=== PATIENT | male | born 1980 | race Hispanic/Latino ===

== ENCOUNTER 2024-07-03 02:15 | Emergency (ER) | payer OTHER ==
[~2024-07-03] VITALS: Ht 172.7 cm; Wt 86.0 kg
[2024-07-03] MEDS ORDERED: LIDOCAINE 2% W/ EPINEPHRINE 30 ML MDV STI ONE (02:25)
[2024-07-03 02:30] VITALS: BP 116/70
[2024-07-03] MEDS ORDERED: Diph, Acellular Pertussis, Tet 0.5 ML/VIAL (Tdap) SDV IM ONE (02:50)
[2024-07-03] MEDS ORDERED: [UNRECOGNIZED DRUG - OTHER] IJ ONE (02:55)
[2024-07-03 02:57] VITALS: BP 116/70
== END 2024-07-03 03:17 | disposition home or self-care (01) | DRG 605 ==
LOC: ED 02:15
PROC: 0HQEXZZ Repair Left Lower Arm Skin, External Approach (ICD-10-PCS; principal; 2024-07-03)
DX: S51.812A Laceration without foreign body of left forearm, initial encounter (principal); E11.9 Type 2 diabetes mellitus without complications; W01.0XXA Fall on same level from slipping, tripping and stumbling without subsequent striking against object, initial encounter; Y92.007 Garden or yard of unspecified non-institutional (private) residence as the place of occurrence of the external cause
CPT/HCPCS: 90715